=== PATIENT | female | born 1955 | race Caucasian/White ===

== ENCOUNTER 2017-08-31 14:43 | Outpatient (CLI) | payer OTHER | END 2017-08-31 14:44 | disposition home or self-care (01) | LOC: BICMAMMO 14:43 | PROVIDERS: ATTEND Obstetrics & Gynecology | DX: Z12.31 Encounter for screening mammogram for malignant neoplasm of breast (principal); Z13.820 Encounter for screening for osteoporosis | CPT/HCPCS: 77063; 77067; 77080 ==

== ENCOUNTER 2017-11-26 10:31 | Outpatient (CLI) | payer OTHER | END 2017-11-26 10:32 | disposition home or self-care (01) | LOC: BICRAD 10:31 | PROVIDERS: ATTEND Family Medicine | DX: M54.2 Cervicalgia (principal); M47.892 Other spondylosis, cervical region; Z98.1 Arthrodesis status; Z98.890 Other specified postprocedural states | CPT/HCPCS: 72040 ==

== ENCOUNTER 2018-04-22 08:32 | Outpatient (CLI) | payer OTHER ==
[2018-04-22] MEDS ORDERED: Gadobenate Dimeglumine 529 MG/1 ML (20ML VIAL) ONE (09:44)
--- NOTE | 2018-04-22 11:33 | MRI ---
MRI CERVICAL SPINE WITH AND WITHOUT CONTRAST: DATE: 04-22-18 History: 62-year old female with M54.2 - cervical pain (neck). M48.02 - cervical stenosis of the spinal can al. Comparison: MRI of 02-07-07. Technique: Multisequence MRI of cervical spine obtained in sagittal and axial planes, pre and post IV injection of 18 ml of MultiHance. FINDINGS: Vertebral body heights are maintained. No abnormal, unexpected enhancement visualized. No subluxation . Bone marrow signal is obscured at C6 and C7 by magnetic susceptibility artifact from metallic hardw are. No major bone marrow signal abnormality identified elsewhere. C1-2: No high grade central stenosis. C2-3: Disc space maintained. No central or neural foraminal stenosis. Normal bilateral facet joints. C3-4: Disc space maintained. The previously demonstrated moderate sized central and left paracentral disc/osteophyte complex has grown in size, and this includes now larger right paracentral component a lso. This causes severe central spinal stenosis, significantly indenting and flattening the spinal co rd. Bilateral small uncinate process osteophytes, left greater than right, result in moderate right n eural foraminal stenosis and severe left neural foraminal stenosis. The degree of chronic cord compre ssion and severe central spinal canal stenosis have worsened significantly since 2006. Mild right deg enerative facet hypertrophy. Mild to moderate left degenerative facet hypertrophy. C4-5: Disc space maintained. Interval growth of now large broad-based central and bilateral paracentr al disc/osteophyte complex resulting in greater degree of indentation and flattening of the spinal co rd, and now very severe central spinal canal stenosis. Bilateral moderate sized uncinate process oste ophytes result in severe bilateral neural foraminal stenosis, also worse since prior MRI. Normal bila teral facet joints. The large disc/osteophyte complexes of C3-4 and C4-5 are interconnected by calcif ied posterior longitudinal ligament and/or calcified superiorly and inferiorly migrated extruded comp onents of disc extrusion. These also extend superiorly almost up to the C2-3 disc level and inferiorl y to the upper C5 endplate level. C5-6: Again demonstrated is the old successful ankylosis of the vertebral bodies, with obliteration o f the disc space. Normal bilateral facet joints. Mild central spinal canal stenosis on a developmenta l basis due to congenitially short pedicles. Mild right neuroforaminal stenosis. No left neuroforamin al stenosis. C6-7: There are new anterior metallic plate and screws, with successful osseous fusion across a now o bliterated disc space. Mild central stenosis entirely on a congenital basis due to developmentally sh ort pedicles. Mild bilateral neural foraminal stenosis. Normal right facet joint. Mild bony hypertrop hy of left facet joint which also appears to be ankylosed. C7-T1: Disc space maintained. No central stenosis. Moderate to severe right degenerative facet change s. Mild to moderate left degenerative facet changes. Mild to moderate bilateral neuroforaminal stenos is. IMPRESSION: 1. Interval growth of large disc/osteophyte confluent complexes at C3-4 and C4-5 causing a greater de gree of severe central spinal canal stenosis and significant chronic cord compression compared to 200 7. 2. Interval worsening of now severe neural foraminal stenosis at C3-4 and C4-5. 3. Old, successful fusion and ankylosis at C5-6 (no residual hardware there). 4. New anterior cervical discectomy and fusion with hardware, also successful, at C6-7. POS: [facility]
--- NOTE | 2018-04-22 12:13 | RAD ---
FIVE VIEW CERVICAL SPINE: History: Cervical stenosis. Cervical pain. Comparison: None. FINDINGS: AP, lateral neutral, lateral flexion, lateral extension, and swimmer's view of the cervical spine was submitted for interpretation. On the AP projection, mild degenerative changes of the facets. There is no prevertebral soft tissue swelling. There is evidence of anterior fusion plate with transv ertebral body screw at C6 and C7. There is a prosthesis at the C6-7 level. There is diffusion of the C5-6 disc space. In the neutral position, there is straightening of the normal cervical lordosis. Mil d loss of disc space height and osteophyte formation at C3-4 and C4-5. Upon flexion and extension, th ere is no abnormal motion. IMPRESSION: 1. Degenerative disc disease at C3-4 and C4-5 with mild loss of disc space height and osteophyte form ation. 2. Straightening of the normal cervical lordosis in the neutral position without significant abnormal motion upon extension or flexion. POS: [facility]
== END 2018-04-22 08:33 | disposition home or self-care (01) ==
LOC: BICMRI 08:32
PROVIDERS: ATTEND Neurological Surgery
DX: M48.02 Spinal stenosis, cervical region (principal); M50.31 Other cervical disc degeneration, high cervical region; M50.321 Other cervical disc degeneration at C4-C5 level; M99.81 Other biomechanical lesions of cervical region; Z98.1 Arthrodesis status
CPT/HCPCS: 72050; 72156; 82565; A9579

== ENCOUNTER 2018-07-08 05:42 | Day surgery (SDC) | payer OTHER ==
[2018-07-04 13:33] VITALS: BMI 29.1
--- NOTE | 2018-07-07 19:46 | HP ---
HISTORY OF PRESENT ILLNESS: Ms. Stover is back to our office. She continues to have hand numbness, worse on the right. There is imbalance as well, rarely is there a spinning sensation, but her balance is rather an unsteadiness in her legs and a need to touch the furniture to navigate the home. Recently, she asked for help opening a jar and this was new for her. Typically, she uses her hands very well and they are a bit weaker than normal. She has C-spine images to review. PAST MEDICAL HISTORY: 1. Anxiety. 2. Hormones. 3. High cholesterol. 4. Diabetes. 5. Hypertension. ALLERGIES: PENICILLIN. PAST SURGICAL HISTORY: 1. Hysterectomy. 2. Cervical fusion. 3. Left knee arthroscopy. 4. Right knee arthroscopy. FAMILY HISTORY: Father is alive, diagnosed with heart disease. Mother is alive, diagnosed with diabetes and cancer. SOCIAL HISTORY: The patient is a smoker, smokes approximately half a pack a day. Does not drink alcohol or use any other illicit drugs. She is a homemaker, , and has two children, 39 and 37. MEDICATIONS: 1. Effexor. 2. Tizanidine. 3. Estradiol. 4. Metformin. 5. Levothyroxine. 6. Biotin. 7. Calcium. REVIEW OF SYSTEMS: A 10-point review of systems has been completed and is otherwise negative as stated in the above HPI. PHYSICAL EXAMINATION: CONSTITUTIONAL: The patient is alert and oriented, does not appear to be in any visible distress. HEENT: Head is normocephalic and atraumatic. Pupils are equal, round, reactive to light. Extraocular movements are intact. Hearing is intact. Moist mucous membranes. RESPIRATORY: Regular work of breathing on room air. Symmetrical chest rise. CARDIAC: Regular rate and rhythm. NEUROLOGIC: Gait and station are normal. Tandem gait. Off balance. Side step after 4 strides. Motor exam; loss of intrinsic hand strength, right greater than left. Sensory exam, nondermatomal numbness, right greater than left hand. Tinel's negative both wrists. Reflex exam normal. Knee jerks and ankle jerks. Toe equivocal. One-beat clonus on the left. IMAGING: MRI shows severe cord compression at C3-4 and C4-5. Flexion-extension x-rays, no over instability, fused C5-C6, C6-C7 from prior surgeries. EMG and NCV, old right C7 radiculopathy, nonactive, mild carpal tunnel syndrome. 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 Informed consent, we have discussed the indications, risks, benefits, alternatives, and expected results from surgery. The risks discussed included, but were not limited to, bleeding, infection, CSF leak, nerve damage, weakness, swallowing, trouble feeding, trouble tube placement, tracheal injury, esophageal injury, vocal cord injury, spinal cord injury, incontinence, paralysis, ventilator dependence, wheelchair dependence, stroke, loss of vision, carotid artery injury, jugular vein injury, hardware displacement, cardiopulmonary complications of anesthesia or . Long-term complications discussed include, but were not limited to hardware failure, degradation of surrounding disks. The patient states she understands the risks and is willing to proceed with surgery. Job ID: [id number]
[2018-07-08] MEDS ORDERED: Clindamycin/D5W 900 mg/50 ml Premix Bag ONE ×2 (06:14→15:46)
[2018-07-08] MEDS ORDERED: Levofloxacin 500 mg/D5W 100 ml Premix Bag ONE (06:15)
[2018-07-08] MEDS ORDERED: Sodium Chloride 0.9% 10 ML ONE (06:19)
[2018-07-08] MEDS ORDERED: Thrombin 5000 UNITS/5 ML VIAL ONE (06:19)
[2018-07-08] MEDS ORDERED: Midazolam HCl 2 mg/2 ml Vial ONE (06:39)
[2018-07-08] MEDS ORDERED: Fentanyl 100 MCG/2 ML VIAL ONE ×3 (06:58→12:10)
[2018-07-08] MEDS ORDERED: HYDROmorphone 2 MG/ML VIAL ONE (10:42)
--- NOTE | 2018-07-08 12:03 | EKG ---
Test Reason : PREOP Blood Pressure : / mmHG Vent. Rate : 070 BPM Atrial Rate : 070 BPM P-R Int : 142 ms QRS Dur : 092 ms QT Int : 410 ms P-R-T Axes : 067 046 002 degrees QTc Int : 442 ms Normal sinus rhythm Normal ECG When compared with ECG of 04-NOV-2015 12:02, No significant change was found Confirmed by GALLITO CARMONA ([id number]) on 07/08/2018 12:03:33 PM Referred By: JEFFERY Confirmed By:GALLITO CARMONA
[2018-07-08] MEDS ORDERED: Morphine 4 MG/ML VIAL ONE (13:26)
[2018-07-08] MEDS ORDERED: Acetaminophen/Codeine 30-300mg Tablet ONE (13:58)
--- NOTE | 2018-07-08 14:27 | OP ---
DATE OF PROCEDURE: 07/08/2018 CLIPPER MACHINE OPERATOR: Guera Gardner PA-C PREOPERATIVE INDICATION: Treat pain and prevent neurological deterioration. PREOPERATIVE DIAGNOSES: 1. Cervical intervertebral disk disease with cord compression, myelopathy, and nerve root compression causing radiculopathy both at C3-C4 and C4-C5. 2. Previous anterior cervical discectomy and fusion at C5-C6 and another at C6-C7. POSTOPERATIVE DIAGNOSES: 1. Cervical intervertebral disk disease with cord compression, myelopathy, and nerve root compression causing radiculopathy both at C3-C4 and C4-C5. 2. Previous anterior cervical discectomy and fusion at C5-C6 and another at C6-C7. OPERATIVE PROCEDURE: Reopening cervical incision, exposure of anterior cervical spine, anterior cervical diskectomy, intervertebral arthrodesis, placement of intervertebral biomechanical device, local morcellized autograft, morcellized allograft and anterior cervical plating C3-C4 and C4-C5 under operative microscope. PREOPERATIVE MEDICATION: Ancef 2 g IV. DRAINS: zero. DRAIN TYPE: None. DESCRIPTION OF PROCEDURE: The patient was brought to the operating room. General endotracheal anesthesia was induced. The patient was positioned supine on the operating table with her head supported by a donut-shaped headrest. A lateral fluoro radiograph confirmed that the previous incision could give us access from C3 to C5. The right side of the neck was sterilely prepped and draped. We opened with a 10 blade knife and controlled bleeding with bipolar cautery. We dissected sharply to the platysma and cut this muscle in line with our incision. We continued our dissection medial to the sternocleidomastoid and lateral to the trachea and esophagus. This dissection was carried us through scar tissue from both previous operations. We eventually arrived to the prevertebral space and placed a marker at C4-C5. We took a lateral fluoro radiograph to confirm the levels upon which we were operating. We then had elevated longus colli muscles off the anterior surface of C3, C4, and C5. We placed self-retaining retractors beneath those muscles. Distraction pins were placed in C3 and C5 and we distracted across both of the intervening interspaces. We incised the interspaces with a 15 blade knife and removed disk contents using curettes and rongeurs. The operative microscope was brought into the field. Under microscopic magnification using microsurgical techniques, we have removed the remainder of the intervertebral disk. We accessed the ventral epidural space with a microcurette. We removed posterior longitudinal ligament, posterior osteophytes, and calcified disk across the entire interspace. The calcified disk and calcified posterior longitudinal ligament were most prominent on the left side of the canal both at C3-C4 and again at C4-C5. This required multiple careful dissection maneuvers and small fragments were removed microscopically until there was adequate decompression of the dura and the neural foramina. We decompressed from the neural foramen on the left all the way to the neural foramen on the right across the entire interspace with no further compression of neural elements. We then irrigated with bacitracin irrigation and prepared the endplates for grafting. We measured the height of the interspace to 7 mm of both the interspaces. Two separate 7-mm PEEK intervertebral grafts were brought into the field. The osteophytes were removed during decompression and were cleaned of soft tissue attachments, morcellized and added to demineralized bone matrix as our fusion substrate. The substrate was placed in the intervertebral grafts and those were advanced into the interspaces under radiographic guidance to the appropriate depth. We then removed the operative microscope and the distraction pins. The 34 mm anterior cervical plate was brought into the field. We drilled airline transport pilot holes through the plate into the vertebral segments at C3, C4 and C5 and affixed the plate using 14 mm screws. We engaged the locking mechanism over each of the 6 screws. AP and lateral fluoro radiographs confirmed adequate position of our instrumentation. We irrigated copiously with bacitracin irrigation. We closed the wound in anatomical layers and we applied a sterile dressing. This was a clean case with no contamination. Job ID: [id number]
[2018-07-08] MEDS ORDERED: HYDROcodone/Acetaminophen 5/325 mg Tablet ONE (16:11)
== END 2018-07-08 16:35 | disposition home or self-care (01) ==
LOC: SDC 05:42
PROVIDERS: ATTEND Neurological Surgery
PROC: 0RG2070 Fusion of 2 or more Cervical Vertebral Joints with Autologous Tissue Substitute, Anterior Approach, Anterior Column, Open Approach (ICD-10-PCS; principal; 2018-07-08)
PROC: 0RG20A0 Fusion of 2 or more Cervical Vertebral Joints with Interbody Fusion Device, Anterior Approach, Anterior Column, Open Approach (ICD-10-PCS; principal; 2018-07-08)
DX: M50.01 Cervical disc disorder with myelopathy, high cervical region (principal); I10 Essential (primary) hypertension; E78.00 Pure hypercholesterolemia, unspecified; E11.9 Type 2 diabetes mellitus without complications; F41.9 Anxiety disorder, unspecified; F17.210 Nicotine dependence, cigarettes, uncomplicated; Z98.1 Arthrodesis status; Z88.0 Allergy status to penicillin; Z90.710 Acquired absence of both cervix and uterus; Z79.84 Long term (current) use of oral hypoglycemic drugs; Z79.1 Long term (current) use of non-steroidal anti-inflammatories (NSAID); Z79.818 Long term (current) use of other agents affecting estrogen receptors and estrogen levels; Z79.899 Other long term (current) drug therapy; Z98.890 Other specified postprocedural states
CPT/HCPCS: 76001; 93005; 93010; 96374; C1713; C1776; J1170; J1956; J2250; J2270; J3010; J3490

== ENCOUNTER 2018-09-19 09:48 | Outpatient (CLI) | payer OTHER ==
--- NOTE | 2018-09-19 11:51 | RAD ---
CERVICAL SPINE 2 VIEWS: COMPARISON: 03/20/2007, 04/22/2018. FINDINGS: There are anterior fusion plates with transvertebral body screws at C3, C4, C5. One of the screws at C5, specifically the right screw, appears to have backed out. At least half of the screw appears to have backed out from the vertebral body. Nevertheless, the anterior fusion plate is flush against t he vertebral body. There may be some perihardware lucency involving the left screw at C5. Disk pros thesis at C4-C5 and C5-C6 appears to be uncomplicated. There is fusion of the C5-C6 disk space. The re is an uncomplicated anterior fusion plate at C6-C7, unchanged. There is no prevertebral soft tissue swelling. Lateral masses of C1 and C2 articulate appropriately on the open-mouth projection. Unremarkable odon toid process. On the AP projection, no malalignment. IMPRESSION: Cervical fusion hardware as defined above. POS: [facility]
== END 2018-09-19 09:49 | disposition home or self-care (01) ==
LOC: TBSIIMAG 09:48
PROVIDERS: ATTEND Neurological Surgery
DX: M50.20 Other cervical disc displacement, unspecified cervical region (principal); M54.12 Radiculopathy, cervical region; M48.02 Spinal stenosis, cervical region; M43.22 Fusion of spine, cervical region
CPT/HCPCS: 72040

== ENCOUNTER 2018-11-12 13:33 | Outpatient (CLI) | payer OTHER ==
--- NOTE | 2018-11-12 14:54 | RAD ---
CERVICAL SPINE FOUR VIEWS: INDICATIONS: Follow up loose screw. Cervical HNP. COMPARISON: 09/19/2018 FINDINGS: Anterior plate and screws again seen transfixing C3, C4, and C5, with interbody implants at these lev els. The right C5 screw has retracted, as noted on the prior study. There is no evidence of signifi cant change in the position of this screw since that exam. The anterior plate and screws and interbody implant at C6-C7 appears stable. There is bony fusion at C5-C6 and at C6-C7 noted. IMPRESSION: Stable findings when compared to 09/19/2018. Retraction of the right C5 screw appears unchanged. POS: [facility]
== END 2018-11-12 13:34 | disposition home or self-care (01) ==
LOC: TBSIIMAG 13:33
PROVIDERS: ATTEND Neurological Surgery
DX: M50.20 Other cervical disc displacement, unspecified cervical region (principal); Z98.890 Other specified postprocedural states
CPT/HCPCS: 72040

== ENCOUNTER 2019-06-26 10:56 | Outpatient (CLI) | payer OTHER ==
--- NOTE | 2019-06-26 13:09 | MMO ---
Bilateral MAMMO Bilat Screen [facility]. CLINICAL HISTORY: Patient is 63 years old and is seen for screening. The patient has no family history of breast cancer. The patient has no personal history of cancer. VIEWS: The views performed were: bilateral craniocaudal with tomosynthesis and bilateral mediolateral oblique with tomosynthesis. FILMS COMPARED: The present examination has been compared to prior imaging studies performed at [facility] on 08/31/2017, and at [facility] on 04/29/2013, 12/07/2014 and 05/11/2016. This study has been interpreted with the assistance of computer-aided detection. MAMMOGRAM FINDINGS: There are scattered fibroglandular densities. There are stable benign appearing calcifications seen in both breasts. There are no suspicious masses, suspicious calcifications, or new areas of architectural distortion. IMPRESSION: THERE IS NO MAMMOGRAPHIC EVIDENCE OF MALIGNANCY. A ROUTINE FOLLOW-UP MAMMOGRAM IN 1 YEAR IS RECOMMENDED. THE RESULTS OF THIS EXAM WERE SENT TO THE PATIENT. ACR BI-RADS Category 2 - Benign finding MAMMOGRAPHY NOTE: 1. A negative mammogram report should not delay a biopsy if a dominant of clinically suspicious mass is present. 2. Approximately 10% to 15% of breast cancers are not detected by mammography. 3. Adenosis and dense breasts may obscure an underlying neoplasm. Reported by: LINETTE DURÁN MD Electonically Signed: [id number]
== END 2019-06-26 10:57 | disposition home or self-care (01) ==
LOC: BICMAMMO 10:56
PROVIDERS: ATTEND Family Medicine
DX: Z12.31 Encounter for screening mammogram for malignant neoplasm of breast (principal)
CPT/HCPCS: 77063; 77067

== ENCOUNTER 2020-02-26 14:25 | Outpatient (CLI) | payer OTHER ==
--- NOTE | 2020-02-26 15:57 | RAD ---
CERVICAL SPINE: 02/26/20 Five views. HISTORY: Neck pain. Postop follow-up. COMPARISON: Comparison made to films of 09/19/18. Anterior plate and screws again seen transfixing C3, C4, and C5 with interbody implants. On the prior exam, the left screw at the C5 vertebra had retracted. On today's exam, this screw is completely retracted and now is positioned in a vertical position nayla g the prevertebral soft tissues at C5-C6. The plate and screws at the C6-C7 level appears stable. Posterior alignment is preserved and unchanged in appearance. IMPRESSION: The pedicle screw on the right at the C5 level is completely retracted from the vertebral body and no w lies vertical in the prevertebral soft tissues. POS: [facility]
== END 2020-02-26 14:26 | disposition home or self-care (01) ==
LOC: TBSIIMAG 14:25
PROVIDERS: ATTEND Neurological Surgery
DX: M54.2 Cervicalgia (principal); T84.028A Dislocation of other internal joint prosthesis, initial encounter
CPT/HCPCS: 72050

== ENCOUNTER 2020-05-19 15:30 | Outpatient (CLI) | payer OTHER ==
--- NOTE | 2020-05-19 15:50 | RAD ---
Exam: Cervical spine 3 views COMPARISON: 11/12/2018. FINDINGS: Interval revision of cervical fusion changes. When compared to the examination from 0, the screw anterior to the C5 level is no longer present. There is an anterior fusion plate with two transvertebral body screws at C3, C4 and C5. Additionally there is an anterior fusion plate at C6 and C7. No perihardware lucency. Stable disc prosthesis at C3-C4 and C4-C5. Interval placement of posterior facet screws at C3, C4, C5, C6 and C7. There is stable straightening of cervical lordosis. Predental space is normal. No prevertebral soft tissue swelling. No malalignment on the AP view. IMPRESSION: Interval surgical removal of a screw at the C5 level. Interval placement of posterior fus ion hardware. Transcribed Date/Time: 05/19/2020 3:53 PM
== END 2020-05-19 15:31 | disposition home or self-care (01) ==
LOC: TBSIIMAG 15:30
PROVIDERS: ATTEND Neurological Surgery
DX: M48.02 Spinal stenosis, cervical region (principal); Z98.1 Arthrodesis status
CPT/HCPCS: 72040

== ENCOUNTER 2020-11-02 09:22 | Outpatient (CLI) | payer OTHER | END 2020-11-02 09:23 | disposition home or self-care (01) | LOC: BICCT 09:22 | PROVIDERS: ATTEND Family Medicine | DX: Z12.2 Encounter for screening for malignant neoplasm of respiratory organs (principal); F17.210 Nicotine dependence, cigarettes, uncomplicated; J43.9 Emphysema, unspecified | CPT/HCPCS: 71271 ==

== ENCOUNTER 2021-03-16 08:27 | Outpatient (CLI) | payer OTHER ==
[2021-03-16] MEDS ORDERED: Magnevist 469MG/ML 20 ML VIAL ONE (10:10)
== END 2021-03-16 08:28 | disposition home or self-care (01) ==
LOC: TBSIIMAG 08:27
PROVIDERS: ATTEND Surgery
DX: M79.89 Other specified soft tissue disorders (principal); D17.9 Benign lipomatous neoplasm, unspecified
CPT/HCPCS: 82565; A9579

== ENCOUNTER 2021-04-08 08:15 | Outpatient (CLI) | payer OTHER ==
[2018-07-04 14:13] LABS: Hemoglobin 13.7 g/dL (12.0-16.0); Mean Corpuscular HGB CONC 34.5 g/dL (32.0-36.0); Mean Corpuscular Hemoglobin 32.3 pg (27.0-31.0); Mean Corpuscular Volume 93.6 fL (78.0-98.0); Mean Platelet Volume 7.1 fL (7.4-10.4); Platelet Count 310 thou/uL (130-400); RBC Distribution Width 12.3 % (11.5-14.5); Red Blood Cell (RBC) Count 4.25 mill/uL (4.20-5.40)
[2018-07-04 14:19] LABS: INR-International Normal Ratio 0.9; PTT 27.2 SEC (22.9-36.1); Prothrombin Time 12.6 SEC (12.0-14.7)
[2018-07-04 14:34] LABS: Anion Gap 14 mmol/L (10-20); BUN (Urea Nitrogen) 18 mg/dL (9.8-20.1); Calc. Creatinine Clearance 0 mL/min (70-130); Calcium 9.9 mg/dL (7.8-10.44); Carbon Dioxide 24 mmol/L (22-29); Chloride 104 mmol/L (98-107); Glucose 140 mg/dL (70-105); Potassium 4.1 mmol/L (3.5-5.1); Sodium 138 mmol/L (136-145)
[2021-04-08 10:20] LABS: #Eosinphils 0.2 10x3/uL (0.0-0.5); #Monocytes 0.5 10x3/uL (0.0-1.1); #Neutrophils 3.7 10x3/uL (1.5-8.4); %Basophils 0.4 % (0.0-2.0); %Eosinophils 2.5 % (0.0-6.0); %Lymphocytes 34.4 % (18.0-47.0); %Monocytes 7.7 % (0.0-10.0); %Neutrophils 54.7 % (40.0-75.0); Hemoglobin 13.8 g/dL (12.0-15.5); Mean Corpuscular HGB CONC 33.1 g/dL (32.0-36.0); Mean Corpuscular Hemoglobin 30.8 pg (27.0-33.0); Mean Corpuscular Volume 93.1 fl (81.6-98.3); Mean Platelet Volume 9.7 fl (7.4-10.4); Platelet Count 306 10x3/uL (150-450); RBC Distribution Width 13.1 % (11.5-14.5); Red Blood Cell (RBC) Count 4.48 10x6/uL (3.90-5.03); White Blood Cell (WBC) Count 6.7 10x3/uL (3.5-10.5)
[2021-04-08 10:23] LABS: Anion Gap 15 mmol/L (10-20); BUN (Urea Nitrogen) 22 mg/dL (9.8-20.1); Calc. Creatinine Clearance 0 mL/min (70-130); Calcium 10.1 mg/dL (7.8-10.44); Carbon Dioxide 24 mmol/L (23-31); Chloride 104 mmol/L (98-107); Glucose 120 mg/dL (80-115); Potassium 4.3 mmol/L (3.5-5.1); Sodium 139 mmol/L (136-145)
[2021-04-08 21:10] LABS: SARS-CoV-2 PCR by NAA Not Detected (NotDetected)
== END 2021-04-08 08:16 | disposition home or self-care (01) ==
LOC: LABBT 08:15
PROVIDERS: ATTEND Neurological Surgery
DX: Z01.812 Encounter for preprocedural laboratory examination (principal); M79.89 Other specified soft tissue disorders; Z20.822 Contact with and (suspected) exposure to COVID-19
CPT/HCPCS: 80048; 85025; 85027; 85610; 85730; U0003; U0005

== ENCOUNTER 2021-04-13 11:40 | Day surgery (SDC) | payer OTHER ==
[2021-04-11 13:34] VITALS: BMI 27.2
[2021-04-13] MEDS ORDERED: Bupivacaine PF 0.5% 30 ML VIAL ONE (14:04)
[2021-04-13] MEDS ORDERED: Lidocaine 1% w/Epinephrine 1:100K 20 ML VIAL ONE (14:04)
[2021-04-13] MEDS ORDERED: Levofloxacin 500 mg/D5W 100 ml Premix Bag ONE (14:39)
[2021-04-13] MEDS ORDERED: Fentanyl 100 MCG/2 ML VIAL ONE ×3 (14:52→16:21)
[2021-04-13] MEDS ORDERED: PROPOFOL 200 MG/20 ML VIAL ONE (15:06)
[2021-04-13] MEDS ORDERED: Ondansetron PF 4 MG/2 ML Vial ONE (15:06)
[2021-04-13] MEDS ORDERED: HYDROcodone/Acetaminophen 5/325 mg Tablet ONE (17:11)
== END 2021-04-13 17:40 | disposition home or self-care (01) ==
LOC: SDC 11:40
PROVIDERS: ATTEND Surgery
PROC: 0KBQ0ZZ Excision of Right Upper Leg Muscle, Open Approach (ICD-10-PCS; principal; 2021-04-13)
DX: D17.23 Benign lipomatous neoplasm of skin and subcutaneous tissue of right leg (principal); F17.210 Nicotine dependence, cigarettes, uncomplicated; Z88.0 Allergy status to penicillin; Z79.84 Long term (current) use of oral hypoglycemic drugs; Z79.1 Long term (current) use of non-steroidal anti-inflammatories (NSAID); Z79.899 Other long term (current) drug therapy; Z90.49 Acquired absence of other specified parts of digestive tract; Z95.5 Presence of coronary angioplasty implant and graft; Z98.1 Arthrodesis status; Z98.890 Other specified postprocedural states
CPT/HCPCS: 88304; J1956; J2405; J2704; J3010; S0020

== ENCOUNTER 2021-06-02 21:10 | Emergency (ER) | payer OTHER ==
[2021-06-02] MEDS ORDERED: Silver Sulfadiazine 50 GM TUBE ONE (22:12)
== END 2021-06-02 22:20 | disposition home or self-care (01) ==
LOC: ERS 21:10
DX: T23.252A Burn of second degree of left palm, initial encounter (principal); T31.0 Burns involving less than 10% of body surface; E11.9 Type 2 diabetes mellitus without complications; X15.8XXA Contact with other hot household appliances, initial encounter
CPT/HCPCS: 99283

== ENCOUNTER 2021-12-28 18:30 | Day surgery (SDC) | payer OTHER ==
[2021-12-28] MEDS ORDERED: Phenylephrine 2.5% Ophth Soln 5 ML BOT ONE (18:52)
[2021-12-28] MEDS ORDERED: Cyclopentolate 1% Opth Drop 2 ML BOT ONE (18:52)
[2021-12-28] MEDS ORDERED: Midazolam HCl 2 mg/2 ml Vial ONE (18:53)
[2021-12-28] MEDS ORDERED: fentaNYL Citrate/PF 100 MCG/2 ML SYRINGE ONE (18:54)
[2021-12-28] MEDS ORDERED: EPINEPHrine 0.3 MG in Ophthalmic Irrigation Solution 500 ML IRR SCH (19:00)
[2021-12-28] MEDS ORDERED: Cyclopentolate 1% Opth Drop 2 ML BOT L EYE SCH (19:00)
[2021-12-28] MEDS ORDERED: Phenylephrine 2.5% Ophth Soln 5 ML BOT L EYE SCH (19:00)
[2021-12-28] MEDS ORDERED: Acetaminophen 500 MG TAB PO PRN (19:00)
[2021-12-28] MEDS ORDERED: Triamcinolone 40 MG/ML VIAL ONE (19:36)
[2021-12-28] MEDS ORDERED: Lidocaine 4% PF 5 ML AMP ONE (19:36)
[2021-12-28] MEDS ORDERED: PROPOFOL 200 MG/20 ML VIAL ONE (19:36)
[2021-12-28] MEDS ORDERED: Ondansetron PF 4 MG/2 ML Vial ONE (19:36)
[2021-12-28] MEDS ORDERED: Bupivacaine 0.75% 10 ML VIAL ONE (19:36)
[2021-12-28] MEDS ORDERED: Maxitrol 0.1% Opth Oint 3.5 GM TUBE ONE (19:36)
[2021-12-28] MEDS ORDERED: Lidocaine 1% PF 5 ML VIAL ONE (19:36)
[2021-12-28 19:49] LABS: SARS-CoV-2 NAA Rapid Test Not Detected (NotDetected)
[2021-12-28] MEDS ORDERED: HYDROcodone/Acetaminophen 5/325 mg Tablet ONE ×2 (21:25)
== END 2021-12-28 21:35 | disposition home or self-care (01) ==
LOC: SDC/OP 18:30
PROVIDERS: ATTEND Ophthalmology Retina Specialist
PROC: 08T53ZZ Resection of Left Vitreous, Percutaneous Approach (ICD-10-PCS; principal; 2021-12-28)
DX: H33.022 Retinal detachment with multiple breaks, left eye (principal); Z88.0 Allergy status to penicillin; Z20.822 Contact with and (suspected) exposure to COVID-19
CPT/HCPCS: 67025; J0171; J2250; J2405; J2704; J3301; J3490

== ENCOUNTER 2025-03-30 13:08 | Outpatient (CLI) | payer MEDICARE, OTHER | END 2025-03-30 13:09 | disposition home or self-care (01) | LOC: SCSBT 13:08 | PROVIDERS: ATTEND Family Medicine | DX: Z78.0 Asymptomatic menopausal state (principal) | CPT/HCPCS: 77080 ==